=== PATIENT | male | born 1990 | race Two or more races ===

== ENCOUNTER 2018-10-14 22:01 | Emergency (ER) | payer MEDICAID ==
[~2018-10-14] VITALS: Ht 188 cm; Wt 66.7 kg
[2018-10-14] MEDS ORDERED: METH5SOL PO (22:16)
[2018-10-14] MEDS ORDERED: SULFAMETH/TRIMETH 800/160 MG TABLET PO ONE (22:30)
[2018-10-14] MEDS ORDERED: SULFAMETH/TRIMETH 800/160 MG TABLET ONE (22:34)
--- NOTE | 2018-10-14 22:36 | NUR ---
Patient discharged to home in stable conditon. Written and verbal after care instructions given. Patient verbalizes understanding of instructions. Pt. d/c w/ prescription per MD order, all d/c papers signed, all belongigns w/ pt., ID band removed, ambulated w/ steady gait off unit, NAD
== END 2018-10-14 22:38 | disposition home or self-care (01) ==
LOC: ER 22:04
DX: L01.00 Impetigo, unspecified (principal); L70.9 Acne, unspecified; F15.10 Other stimulant abuse, uncomplicated; F11.10 Opioid abuse, uncomplicated; F17.290 Nicotine dependence, other tobacco product, uncomplicated; Z71.6 Tobacco abuse counseling; Z79.899 Other long term (current) drug therapy
CPT/HCPCS: A4663